=== PATIENT | male | born 2000 | race Two or more races ===

== ENCOUNTER 2023-04-22 22:40 | Emergency (ER) | payer SELFPAY ==
[~2023-04-22] VITALS: Ht 165.1 cm; Wt 77.3 kg
[2023-04-22 22:48] VITALS: BP 136/74; PULSE 75; RESP 18; TEMP 98.3
[2023-04-23] MEDS ORDERED: IBUP-1492 PO (00:46)
[2023-04-23] MEDS: IBUPROFEN 600 MG TABLET PO ONE (00:59)
== END 2023-04-23 03:07 | disposition home or self-care (01) ==
LOC: EMS 22:42
DX: S83.92XA Sprain of unspecified site of left knee, initial encounter (principal); F17.210 Nicotine dependence, cigarettes, uncomplicated; X58.XXXA Exposure to other specified factors, initial encounter; Y93.66 Activity, soccer; Y92.89 Other specified places as the place of occurrence of the external cause; Y99.8 Other external cause status
CPT/HCPCS: 99283